=== PATIENT | female | born 2005 | race Caucasian/White ===

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

== ENCOUNTER 2024-06-05 21:52 | Emergency (ER) | payer OTHER ==
[~2024-06-05] VITALS: Ht 167.6 cm; Wt 113.0 kg
[~2024-06-05 21:52] MED LIST changes: +ALLERGY RE50 MCG/ACT NAB; +CETIRIZINE10 MG PO; +JANUVIA50 MG PO; +METFORMIN HCL1000 MG PO
[2024-06-05] MEDS ORDERED: KETOROLAC TROMETHAMINE 30 MG/ML SDV IV ONE (22:40)
[2024-06-05] MEDS ORDERED: PROMETHAZINE HCL 25 MG/ML AMP IV ONE (22:40)
[2024-06-05] MEDS ORDERED: SODIUM CHLORIDE 0.9% 1,000 ML IV STA (22:40)
[2024-06-05 22:46] VITALS: BP 131/92
[2024-06-05 22:59] LABS: BASO% 0.3 % (0-3); EOS% 1.7 % (0-8); HEMATOCRIT 44.1 % (37.0-47.0); HEMOGLOBIN 14.3 g/dl (12.0-16.0); IMMATURE GRANULOCYTES 0.3 % (0.0-5.0); LYMPH% 24.9 % (15-41); MEAN CELL VOLUME 82.6 fL CALC (80.0-100.0); MEAN CORPUSCULAR HGB 26.8 pG CALC (26.0-32.0); MEAN CORPUSCULAR HGB CONC 32.4 g/dL CAL (32.0-36.0); MONO% 5.3 % (2-13); NEUT# 7.37 thou/uL (2.00-7.15); NEUT% 67.5 % (42-76); RED BLOOD COUNT 5.34 mill/uL (4.20-5.60); RED CELL DISTRI WIDTH 12.7 % (11.5-15.5)
[2024-06-05 23:01] VITALS: BP 115/85
[2024-06-05 23:13] LABS: ALBUMIN 4.1 g/dL (3.2-5.0); BILIRUBIN, TOTAL 0.6 mg/dL (0.02-1.3); CREATININE 0.6 mg/dL (0.5-1.0); POTASSIUM 4.2 mmol/l (3.5-5.1); TOTAL PROTEIN 7.7 g/dL (6.3-8.2)
[2024-06-05 23:53] LABS: URINE BILIRUBIN - DIPSTICK Negative (NEGATIVE); URINE BLOOD DIPSTICK Negative (NEGATIVE); URINE GLUCOSE - DIPSTICK 500 mg/dL (NEGATIVE); URINE KETONE 15 mg/dL (NEGATIVE); URINE LEUK ESTERASE Negative (NEGATIVE); URINE NITRITE - DIPSTICK Negative (Negative); URINE PROTEIN - DIPSTICK Negative (NEG-TRACE); URINE UROBILINOGEN - DIPSTICK 0.2 E.U./dL (0.2)
[2024-06-05 23:54] LABS: URINE COLOR Yellow
[2024-06-06] MEDS ORDERED: METFORMIN HCL500 M1 PO (00:03)
[2024-06-06] MEDS ORDERED: PROMETHAZINE HY25 M1 PO (00:03)
[2024-06-06 00:55] VITALS: BP 115/85
== END 2024-06-06 00:55 | disposition home or self-care (01) | DRG 833 ==
LOC: ED 21:52
PROVIDERS: Family Medicine
DX: O99.619 Diseases of the digestive system complicating pregnancy, unspecified trimester (principal); K52.9 Noninfective gastroenteritis and colitis, unspecified; O99.280 Endocrine, nutritional and metabolic diseases complicating pregnancy, unspecified trimester; R73.9 Hyperglycemia, unspecified; O99.210 Obesity complicating pregnancy, unspecified trimester; E66.9 Obesity, unspecified; O99.519 Diseases of the respiratory system complicating pregnancy, unspecified trimester; J45.909 Unspecified asthma, uncomplicated; Z3A.00 Weeks of gestation of pregnancy not specified; Z20.822 Contact with and (suspected) exposure to COVID-19

== ENCOUNTER 2024-07-30 15:17 | Emergency (ER) | payer OTHER ==
[2024-07-30] VITALS (7 sets, daily range): BP systolic 130–153; BP diastolic 89–100
[~2024-07-30] VITALS: Ht 167.6 cm; Wt 102.0 kg
[~2024-07-30 15:17] MED LIST changes: +METFORMIN HCL500 M1 PO; +PROMETHAZINE HY25 M1 PO
[2024-07-30] MEDS ORDERED: Diph, Acellular Pertussis, Tet 0.5 ML/VIAL (Tdap) SDV IM ONE (15:40)
[2024-07-30] MEDS ORDERED: ZPAK PO (15:44)
[2024-07-30] MEDS ORDERED: AMOX/K CLAV875 M1 PO (15:44)
[2024-07-30] MEDS ORDERED: RABIES IMMUNE GLOBULIN 1,500 IU/10 ML SDV IM ONE (17:20)
[2024-07-30] MEDS ORDERED: RABIES VACCINE, PCEC 2.5 UNITS/VIAL SDV IM ONE (17:20)
== END 2024-07-30 18:08 | disposition home or self-care (01) | DRG 833 ==
LOC: ED 15:17
DX: O9A.219 Injury, poisoning and certain other consequences of external causes complicating pregnancy, unspecified trimester (principal); S60.511A Abrasion of right hand, initial encounter; T14.8XXA Other injury of unspecified body region, initial encounter; O99.519 Diseases of the respiratory system complicating pregnancy, unspecified trimester; O99.210 Obesity complicating pregnancy, unspecified trimester; E66.9 Obesity, unspecified; J45.909 Unspecified asthma, uncomplicated; W55.03XA Scratched by cat, initial encounter; W55.01XA Bitten by cat, initial encounter; Z3A.00 Weeks of gestation of pregnancy not specified
CPT/HCPCS: 90377

== ENCOUNTER 2024-09-11 09:39 | Emergency (ER) | payer OTHER ==
[~2024-09-11] VITALS: Ht 167.6 cm; Wt 116.0 kg
[~2024-09-11 09:39] MED LIST changes: +AMOX/K CLAV875 M1 PO; +ZPAK PO
[2024-09-11 10:50] LABS: BASO% 0.2 % (0-3); EOS% 1.2 % (0-8); HEMATOCRIT 39.3 % (37.0-47.0); IMMATURE GRANULOCYTES 0.7 % (0.0-5.0); LYMPH% 19.7 % (15-41); MEAN CELL VOLUME 83.1 fL CALC (80.0-100.0); MEAN CORPUSCULAR HGB 27.5 pG CALC (26.0-32.0); MEAN CORPUSCULAR HGB CONC 33.1 g/dL CAL (32.0-36.0); MONO% 4.4 % (2-13); NEUT# 7.78 thou/uL (2.00-7.15); NEUT% 73.8 % (42-76); RED BLOOD COUNT 4.73 mill/uL (4.20-5.60); RED CELL DISTRI WIDTH 12.5 % (11.5-15.5)
[2024-09-11 11:12] LABS: ALBUMIN 3.5 g/dL (3.2-5.0); BILIRUBIN, TOTAL 0.5 mg/dL (0.02-1.3); CREATININE 0.3 mg/dL (0.5-1.0); TOTAL PROTEIN 6.6 g/dL (6.3-8.2)
[2024-09-11 12:16] LABS: URINE BILIRUBIN - DIPSTICK Negative (NEGATIVE); URINE BLOOD DIPSTICK Negative (NEGATIVE); URINE GLUCOSE - DIPSTICK 500 mg/dL (NEGATIVE); URINE KETONE 40 mg/dL (NEGATIVE); URINE NITRITE - DIPSTICK Negative (Negative); URINE PROTEIN - DIPSTICK Negative (NEG-TRACE); URINE UROBILINOGEN - DIPSTICK 0.2 E.U./dL (0.2)
[2024-09-11 12:21] LABS: URINE COLOR Yellow
[2024-09-11 12:22] LABS: URINE LEUK ESTERASE Small (NEGATIVE)
[2024-09-11 12:24] LABS: URINE BACTERIA FEW hpf; URINE SQUAMOUS EPITHELIAL CELL MODERATE EPI/hpf (0-FEW)
[2024-09-11 12:25] LABS: URINE AMORPH SEDIMENT FEW hpf (NONE-FEW)
[2024-09-11 12:27] VITALS: BP 123/80
[2024-09-14] MEDS ORDERED: AMOXICILLIN875 MG PO (11:47)
== END 2024-09-11 12:32 | disposition home or self-care (01) | DRG 394 ==
LOC: ED 09:39
PROVIDERS: Family Medicine
DX: K64.4 Residual hemorrhoidal skin tags (principal); O24.312 Unspecified pre-existing diabetes mellitus in pregnancy, second trimester; O99.212 Obesity complicating pregnancy, second trimester; E66.9 Obesity, unspecified; O99.512 Diseases of the respiratory system complicating pregnancy, second trimester; J45.909 Unspecified asthma, uncomplicated; Z3A.24 24 weeks gestation of pregnancy